=== PATIENT | female | born 1950 | race Caucasian/White ===

== ENCOUNTER 2021-07-12 15:01 | Emergency (ER) | payer OTHER ==
--- NOTE | 2021-07-12 15:37 | ER ---
Nurse's Notes [facility] Name: Lucia Rowan Age: 71 yrs Sex: Female : 1950 Arrival Date: 07/12/2021 Time: 15:06 Bed Waiting Private MD: Diagnosis: Otalgia, left ear;Dental pain Presentation: 07/12 15:31 Chief complaint: Patient states: Left side mouth pain that happened suddenly today with vg1 left ear ringing. Coronavirus screen: Vaccine status: Patient reports receiving the 2nd dose of the covid vaccine. Client denies travel out of the [place] in the last 14 days. Ebola Screen: Patient denies exposure to infectious person. Patient denies travel to an Ebola-affected area in the 21 days before illness onset. Initial Sepsis Screen: Does the patient meet any 2 criteria? No. Patient's initial sepsis screen is negative. Does the patient have a suspected source of infection? No. Patient's initial sepsis screen is negative. Risk Assessment: Do you want to hurt yourself or someone else? Patient reports no desire to harm self or others. Onset of symptoms was July 12, 2021. 15:31 Method Of Arrival: Ambulatory vg1 15:31 Acuity: LAZARO 4 vg1 Triage Assessment: 15:35 General: Appears in no apparent distress. uncomfortable, Behavior is calm, cooperative. vg1 Pain: Complains of pain in mouth Pain currently is 6 out of 10 on a pain scale. EENT: Oral mucosa is moist. Historical: - Allergies: 15:35 Sulfa (Sulfonamide Antibiotics); vg1 - Home Meds: 15:35 alendronate 70 mg Oral tab 1 tab once wkly for Post-Menopausal Osteoporosis [Active]; vg1 - PMHx: 15:35 Osteoporosis; Vertigo; vg1 - Immunization history:: Client reports receiving the 2nd dose of the Covid vaccine. - Social history:: Smoking status: Patient denies any tobacco usage or history of. Screenin:48 Abuse screen: Denies threats or abuse. Nutritional screening: No deficits noted. vg1 Tuberculosis screening: No symptoms or risk factors identified. Fall Risk None identified. Vital Signs: 15:31 BP 143 / 87; Pulse 65; Resp 16; Temp 97.7; Pulse Ox 97% ; Weight 70.31 kg; Height 5 ft. vg1 3 in. (160.02 cm); Pain 6/10; 15:31 Body Mass Index 27.46 (70.31 kg, 160.02 cm) vg1 ED Course: 15:06 Patient arrived in ED. mr 15:08 Rip Lama, BRENT is PHCP. pm1 15:08 Dyllan Suarez MD is Attending Physician. pm1 15:35 Triage completed. vg1 15:35 Arm band placed on. vg1 15:48 Patient has correct armband on for positive identification. vg1 15:48 No provider procedures requiring assistance completed. Patient did not have IV access vg1 during this emergency room visit. Administered Medications: 15:49 Not Given (Patient Refused): [place] (HYDROcodone-acetaminophen) 10 mg-325 mg 1 tabs PO vg1 once; RASS on ADMIN: Combtv4, Very Agttd3, Agttd2, Rstlss1, AlertClm0, Drwsy-1, Lt Sdtn-2, Mod Sdtn-3, Dp Sdtn-4, UnArsble-5 Outcome: 15:36 Discharge ordered by . pm1 15:48 Discharged to home ambulatory. vg1 15:48 Condition: good 15:48 Discharge instructions given to patient, Instructed on discharge instructions, follow up and referral plans. medication usage, Demonstrated understanding of instructions, follow-up care, medications, Prescriptions given X 2. 15:49 Patient left the ED. vg1 Signatures: Irma Flannery mr KelbyRip, HAND CANDY MOLDER HAND CANDY MOLDER pm1 Yenifer Murphy, RN RN vg1
--- NOTE | 2021-07-12 15:37 | EDPHYS ---
Physician Documentation [facility] Name: Lucia Rowan Age: 71 yrs Sex: Female : 1950 Arrival Date: 07/12/2021 Time: 15:06 Bed Waiting Private MD: ED Physician Dyllan Suarez HPI: 07/12 15:35 This 71 yrs old Female presents to ER via Ambulatory with complaints of Ear Pain, Mouth pm1 Swelling. 15:35 The patient presents with pain. The complaints affect the left ear. Onset: The pm1 symptoms/episode began/occurred today. Modifying factors: The symptoms are alleviated by nothing, the symptoms are aggravated by lying on that side of her face. Associated signs and symptoms: Pertinent positives: right upper gum swelling, Pertinent negatives: fever, trismus. Severity of symptoms: in the emergency department the symptoms are unchanged. The patient has not experienced similar symptoms in the past. The patient has not recently seen a physician. Historical: - Allergies: 15:35 Sulfa (Sulfonamide Antibiotics); vg1 - Home Meds: 15:35 alendronate 70 mg Oral tab 1 tab once wkly for Post-Menopausal Osteoporosis [Active]; vg1 - PMHx: 15:35 Osteoporosis; Vertigo; vg1 - Immunization history:: Client reports receiving the 2nd dose of the Covid vaccine. - Social history:: Smoking status: Patient denies any tobacco usage or history of. ROS: 15:35 Constitutional: Negative for fever, chills, and weight loss. pm1 15:35 Cardiovascular: Negative for chest pain, palpitations, and edema, Respiratory: Negative for shortness of breath, cough, wheezing, and pleuritic chest pain, Abdomen/GI: Negative for abdominal pain, nausea, vomiting, diarrhea, and constipation, MS/Extremity: Negative for injury and deformity, Skin: Negative for injury, rash, and discoloration. 15:35 ENT: Positive for ear pain, gum swelling, Negative for difficulty swallowing, difficulty handling secretions, hoarseness. 15:35 Neck: Positive for swollen nodes. 15:35 All other systems are negative. Exam: 15:35 Constitutional: This is a well developed, well nourished patient who is awake, alert, pm1 and in no acute distress. Head/Face: Normocephalic, atraumatic. 15:35 Skin: Warm, dry with normal turgor. Normal color with no rashes, no lesions, and no evidence of cellulitis. MS/ Extremity: Pulses equal, no cyanosis. Neurovascular intact. Full, normal range of motion. 15:35 ENT: External ear(s): no acute changes, Ear canal(s): no acute changes, TM's: no acute changes, Examination of the other ear shows no obvious abnormality, Dental exam: abscess, is not appreciated, gum swelling, that is mild, specifically in the upper left second molar (#15), Voice: no acute changes, negative for trismus. 15:35 Neck: Lymph nodes: lymphadenopathy is appreciated, anterior cervical nodes. 15:35 Cardiovascular: Exam negative for acute changes, Rate: normal, Rhythm: regular, Pulses: no pulse deficits are appreciated. 15:35 Respiratory: Exam negative for acute changes, respiratory distress, shortness of breath. 15:35 Neuro: Exam negative for acute changes, Orientation: is normal, Mentation: is normal, Motor: is normal, moves all fours. Vital Signs: 15:31 BP 143 / 87; Pulse 65; Resp 16; Temp 97.7; Pulse Ox 97% ; Weight 70.31 kg; Height 5 ft. vg1 3 in. (160.02 cm); Pain 6/10; 15:31 Body Mass Index 27.46 (70.31 kg, 160.02 cm) vg1 MDM: 15:35 Data reviewed: vital signs. Data interpreted: Pulse oximetry: on room air is 97 %. pm1 Interpretation: normal. Counseling: I had a detailed discussion with the patient and/or guardian regarding: the historical points, exam findings, and any diagnostic results supporting the discharge/admit diagnosis, the need for outpatient follow up, a dentist, to return to the emergency department if symptoms worsen or persist or if there are any questions or concerns that arise at home. 15:36 Patient medically screened. pm1 Administered Medications: 15:49 Not Given (Patient Refused): [place] (HYDROcodone-acetaminophen) 10 mg-325 mg 1 tabs PO vg1 once; RASS on ADMIN: Combtv4, Very Agttd3, Agttd2, Rstlss1, AlertClm0, Drwsy-1, Lt Sdtn-2, Mod Sdtn-3, Dp Sdtn-4, UnArsble-5 Disposition: 18:49 Co-signature as Attending Physician, Dyllan Suarez MD. rn Disposition Summary: 07/12/21 15:36 Discharge Ordered Location: Home pm1 Problem: new pm1 Symptoms: have improved pm1 Condition: Stable pm1 Diagnosis - Otalgia, left ear pm1 - Dental pain pm1 Followup: pm1 - With: Emergency Department - When: As needed - Reason: Worsening of condition Followup: pm1 - With: Private Physician - When: 2 - 3 days - Reason: Recheck today's complaints, Continuance of care, Re-evaluation by your physician Discharge Instructions: - Discharge Summary Sheet pm1 - Dental Pain pm1 - Earache, Adult pm1 Forms: - Medication Reconciliation Form pm1 - Thank You Letter pm1 - Antibiotic Education pm1 - Prescription Opioid Use pm1 Prescriptions: - Amoxicillin 500 mg Oral Capsule - take 1 capsule by ORAL route every 8 hours for 10 days; 30 tablet; Refills: 0, pm1 Product Selection Permitted - Tylenol-Codeine #3 300 mg-30 mg Oral - take 2 tablet by ORAL route every 6 hours As needed; 20 tablet; Refills: 0, pm1 Product Selection Permitted Signatures: Dyllan Suarez MD MD rn Marinas, Patrick, NP [employer] MACHINE OPERATOR pm1 Yenifer Murphy, RN RN vg1
[2021-07-12 18:45] VITALS: BP 143/87; TEMP 97.7; O2SAT 97
== END 2021-07-12 15:49 | disposition home or self-care (01) ==
LOC: ER 15:01
DX: H92.02 Otalgia, left ear (principal); K08.89 Other specified disorders of teeth and supporting structures; Z88.2 Allergy status to sulfonamides
CPT/HCPCS: 99282

== ENCOUNTER 2023-07-21 09:29 | Emergency (ER) | payer OTHER ==
--- OUTSIDE RECORDS SUMMARY | 2023-07-21 09:33 | XMS REPORT | Continuity of Care Document ---
Author Name Unknown Address [address] [place] [address] [place] [address] thconnect Address [address] [place] [address] [address] [place] [address] Care Team Providers Care [employer] Treatment Plant Supervisor Name Role Phone Unavailable Unavailable Unavailable Encounters Start Date/Time End Date/Time Encounter Type Admission Type Attending Clinicians Care Facility Care Department Encounter ID Source 2022-05-20 09:08:18 Outpatient [facility] [id number] [facility]
[2023-07-21] MEDS ORDERED: ONDANSETRON 4 MG/2 ML VIAL ONE (10:25)
[2023-07-21] MEDS ORDERED: FENTANYL CITR 100 MCG/2 ML ONE (10:26)
[2023-07-21] MEDS ORDERED: KETOROLAC 30 MG/ML INJ ONE (10:26)
[2023-07-21] MEDS ORDERED: NA CHLORIDE 0.9% 1,000 ML ONE (10:26)
[2023-07-21] MEDS ORDERED: VALACYCLOVIR 500 MG TAB ONE (10:29)
[2023-07-21 10:32] LABS: Absolute Eosinophils 0.2 K/uL (0-0.5); Absolute Lymphocytes (CBC) 1.2 K/uL (0.7-4.9); Absolute Monocytes 0.6 K/uL (0.1-1.3); Absolute Neutrophil 4.1 K/uL (1.8-8.0); Basophils % 0.8 % (0-1.3); Eosinophils % 2.5 % (0-4.4); Hematocrit 38.6 % (36.0-45.0); Lymphocytes % 19.8 % (15.3-44.8); MCH 30.5 pg (27.0-35.0); MCHC 33.7 g/dL (32.0-36.0); MCV 90.4 fL (80-100); MPV 7.9 fL (7.6-11.3); Monocytes % 10.5 % (3.3-12.3); Neutrophils % 66.4 % (41.7-73.7); Nucleated Red Blood Cells % 0.1 % (0-0); Platelets 269 thou/uL (152-406); RBC Red Blood Cell Count 4.27 M/uL (3.86-4.86); Red Cell Distribution Width 13.6 % (12.1-15.2)
[2023-07-21 10:50] LABS: Albumin 3.4 g/dL (3.4-5.0); Albumin/Globulin Ratio 0.9 (1.1-1.8); Bilirubin Total 0.7 mg/dL (0.2-1.0); Globulin 3.6 g/dL (2.3-3.5)
--- NOTE | 2023-07-21 11:32 | RAD REPORT ---
EXAM DESCRIPTION: CT - Head Brain Wo Cont - 07/21/2023 10:31 am CLINICAL HISTORY: HEADACHE COMPARISON: Head Brain Wo Cont dated 10/07/2015 TECHNIQUE: Noncontrast head CT images were obtained without IV contrast. Multiplanar reformats were generated and reviewed. All CT scans are performed using dose optimization technique as appropriate and may include automated exposure control or mA/KV adjustment according to patient size. FINDINGS: No intracranial hemorrhage, mass, or edema. Midline structures are unremarkable. Normal ventricular caliber for age. Leigh-white matter differentiation is preserved, without evidence of acute infarct. No abnormal extra- axial fluid collections. Mastoid air cells and visualized portions of the paranasal sinuses are clear. No acute bony findings. IMPRESSION: No evidence of an acute intracranial process.
--- NOTE | 2023-07-21 11:33 | ER ---
Nurse's Notes [facility] Name: Lucia Rowan Age: 73 yrs Sex: Female : 1950 Arrival Date: 07/21/2023 Time: : Bed 6 Private MD: Diagnosis: Zoster without complications Presentation: 07/20 09:39 Coronavirus screen: At this time, the client does not indicate any symptoms associated bp with coronavirus-19. Ebola Screen: No symptoms or risks identified at this time. Initial Sepsis Screen: Does the patient meet any 2 criteria? No. Patient's initial sepsis screen is negative. Does the patient have a suspected source of infection? No. Patient's initial sepsis screen is negative. Risk Assessment: Do you want to hurt yourself or someone else? Patient reports no desire to harm self or others. 09:39 Method Of Arrival: Ambulatory bp 09:42 Chief complaint: Patient states: 2-3 DAYS HOLMAN AND BILATERAL EYE PAIN. Onset of symptoms bp is unknown. 09:42 Acuity: LAZARO 3 bp Triage Assessment: 09:38 Headache History: The patient has had previous headaches and this one is similar to bp previous episodes. General: Appears in no apparent distress. Behavior is calm, cooperative, appropriate for age. Pain: Complains of pain in head Pain currently is 5 out of 10 on a pain scale. Pain began suddenly, Also complains of no other associated symptoms. EENT: Reports pain. Neuro: Reports headache. Cardiovascular: No deficits noted. Respiratory: No deficits noted. GI: No signs and/or symptoms were reported involving the gastrointestinal system. : No signs and/or symptoms were reported regarding the genitourinary system. Derm: No deficits noted. Musculoskeletal: No deficits noted. Historical: - Allergies: 09:38 Sulfa (Sulfonamide Antibiotics); bp - Home Meds: 09:38 alendronate 70 mg Oral tab 1 tab once wkly for Post-Menopausal Osteoporosis [Active]; bp - PMHx: 09:38 Osteoporosis; Vertigo; bp - Immunization history:: Adult Immunizations up to date. - Infectious Disease History:: Denies. - Social history:: Smoking status: Patient denies any tobacco usage or history of. Screenin:40 [facility] ED Fall Risk Assessment (Adult) History of falling in the last 3 months, bp including since admission No falls in past 3 months (0 pts). Abuse screen: Denies threats or abuse. Denies injuries from another. Nutritional screening: No deficits noted. Tuberculosis screening: No symptoms or risk factors identified. Assessment: 09:40 General: SEE TRIAGE NOTE. bp 11:30 Reassessment: Patient appears in no apparent distress at this time. Patient is alert, bp oriented x 3, equal unlabored respirations, skin warm/dry/pink. Patient states symptoms have improved. Vital Signs: 09:42 BP 152 / 76; Pulse 73; Resp 16; Temp 98.3; Pulse Ox 98% ; Weight 68.04 kg; Height 5 ft. bp 3 in. ; 11:30 BP 146 / 89; Pulse 48; Resp 16; Pulse Ox 100% ; bp 09:42 Body Mass Index 26.57 (68.04 kg, 160.02 cm) bp Elroy Coma Score: 11:00 Eye Response: spontaneous(4). Motor Response: obeys commands(6). Verbal Response: rhys oriented(5). Total: 15. ED Course: 09:32 Patient arrived in ED. im 09:34 Vaibhav Tamayo MD is Attending Physician. rhys 09:38 Willi Andrews, RN is Primary Nurse. bp 09:39 Arm band placed on. bp 09:40 Patient has correct armband on for positive identification. bp 09:43 Triage completed. bp 10:22 Initial lab(s) drawn, by me, sent to lab. Inserted saline lock: 20 gauge in right mb9 antecubital area, using aseptic technique. Blood collected. 10:[address] via stretcher. mb9 10:31 CT Head Brain wo Cont In Process Unspecified. EDMS 11:33 Serge Gasca MD is Referral Physician. rhys 11:44 Provided Education on: N/A. bp 11:44 No provider procedures requiring assistance completed. IV discontinued, intact, bp bleeding controlled, No redness/swelling at site. Pressure dressing applied. Administered Medications: 10:39 Drug: NS 0.9% IV 1000 ml IV at 1 bolus Per protocol; 1000 mL bolus Route: IV; Rate: 1 bp bolus; Site: right antecubital; 11:44 Follow up: IV Status: Completed infusion; IV Intake: 1000ml bp 10:39 Drug: Ketorolac IVP 30 mg IVP once Route: IVP; Site: right antecubital; bp 11:45 Follow up: Response: No adverse reaction bp 10:39 Drug: Ondansetron IVP 4 mg IVP once; over 2 minutes Route: IVP; Site: right antecubital;bp 11:45 Follow up: Response: No adverse reaction bp 10:39 Drug: fentaNYL (PF) IVP 25 mcg IVP once Route: IVP; Site: right antecubital; bp 11:45 Follow up: Response: No adverse reaction bp 10:39 Drug: fentaNYL (PF) IVP 25 mcg IVP once Route: IVP; Site: right antecubital; bp 11:45 Follow up: Response: No adverse reaction bp 10:39 Drug: Valtrex PO 1000 mg PO once Route: PO; bp 11:45 Follow up: Response: No adverse reaction bp Medication: 09:40 VIS not applicable for this client. bp Intake: 11:44 IV: 1000ml; Total: 1000ml. bp Outcome: 11:33 Discharge ordered by . rhys 11:44 Discharged to home ambulatory, with family, bp 11:44 Condition: stable 11:44 Discharge instructions given to patient, Instructed on discharge instructions, follow up and referral plans. medication usage, Demonstrated understanding of instructions, follow-up care, medications, Prescriptions given X 2, 11:53 Patient left the ED. bp Signatures: Dispatcher [employer] Vaibhav Walker MD MD cha Peltier, Brian, RN RN Irma See RN RN mb9 Caterina Teague
--- NOTE | 2023-07-21 11:34 | EDPHYS ---
Physician Documentation [facility] Name: Lucia Rowan Age: 73 yrs Sex: Female : 1950 Arrival Date: 07/21/2023 Time: : Bed 6 Private MD: ED Physician Vaibhav Tamayo HPI: 07/20 10:49 This 73 yrs old Female presents to ER via Ambulatory with complaints of rhys Headache, Eye Pain. 10:49 The patient complains of pain to the top of head, forehead, left eye and left frontal rhys area. The patient describes the headache as aching. Onset: The symptoms/episode began/occurred 3 day(s) ago. Associated signs and symptoms: The patient has no apparent associated signs or symptoms. Severity of symptoms: At its worst the pain was moderate, in the emergency department the pain is unchanged. Headache History:. The symptoms are alleviated by nothing. the symptoms are aggravated by nothing. The patient has not experienced similar symptoms in the past. Historical: - Allergies: 09:38 Sulfa (Sulfonamide Antibiotics); bp - Home Meds: 09:38 alendronate 70 mg Oral tab 1 tab once wkly for Post-Menopausal Osteoporosis [Active]; bp - PMHx: 09:38 Osteoporosis; Vertigo; bp - Immunization history:: Adult Immunizations up to date. - Infectious Disease History:: Denies. - Social history:: Smoking status: Patient denies any tobacco usage or history of. ROS: 10:58 Constitutional: Negative for fever, chills, and weight loss, Eyes: Negative for injury, rhys pain, redness, and discharge, Neck: Negative for injury, pain, and swelling, Cardiovascular: Negative for chest pain, palpitations, and edema, Respiratory: Negative for shortness of breath, cough, wheezing, and pleuritic chest pain, Abdomen/GI: Negative for abdominal pain, nausea, vomiting, diarrhea, and constipation, Back: Negative for injury and pain, : Negative for injury, bleeding, discharge, and swelling, MS/Extremity: Negative for injury and deformity, Psych: Negative for depression, anxiety, suicide ideation, homicidal ideation, and hallucinations, Allergy/Immunology: Negative for hives, rash, and allergies, Endocrine: Negative for neck swelling, polydipsia, polyuria, polyphagia, and marked weight changes, Hematologic/Lymphatic: Negative for swollen nodes, abnormal bleeding, and unusual bruising, 10:58 ENT: Negative for injury or acute deformity, 10:58 Skin: Positive for rash, of the left frontal area and left eye and top of head, 10:58 Neuro: Positive for headache, Exam: 10:58 Constitutional: This is a well developed, well nourished patient who is awake, alert, rhys and in no acute distress. Eyes: Pupils equal round and reactive to light, extra-ocular motions intact. Lids and lashes normal. Conjunctiva and sclera are non-icteric and not injected. Cornea within normal limits. Periorbital areas with no swelling, redness, or edema. ENT: Nares patent. No nasal discharge, no septal abnormalities noted. Tympanic membranes are normal and external auditory canals are clear. Oropharynx with no redness, swelling, or masses, exudates, or evidence of obstruction, uvula midline. Mucous membranes moist. Neck: Trachea midline, no thyromegaly or masses palpated, and no cervical lymphadenopathy. Supple, full range of motion without nuchal rigidity, or vertebral point tenderness. No Meningismus. Chest/axilla: Normal chest wall appearance and motion. Nontender with no deformity. No lesions are appreciated. Cardiovascular: Regular rate and rhythm with a normal S1 and S2. No gallops, murmurs, or rubs. Normal PMI, no JVD. No pulse deficits. Respiratory: Lungs have equal breath sounds bilaterally, clear to auscultation and percussion. No rales, rhonchi or wheezes noted. No increased work of breathing, no retractions or nasal flaring. Abdomen/GI: Soft, non-tender, with normal bowel sounds. No distension or tympany. No guarding or rebound. No evidence of tenderness throughout. Back: No spinal tenderness. No costovertebral tenderness. Full range of motion. MS/ Extremity: Pulses equal, no cyanosis. Neurovascular intact. Full, normal range of motion. Neuro: Awake and alert, GCS 15, oriented to person, place, time, and situation. Cranial nerves II-XII grossly intact. Motor strength 5/5 in all extremities. Sensory grossly intact. Cerebellar exam normal. Normal gait. Psych: Awake, alert, with orientation to person, place and time. Behavior, mood, and affect are within normal limits. 10:58 Head/face: Noted is rash, consistent with zoster Vital Signs: 09:42 BP 152 / 76; Pulse 73; Resp 16; Temp 98.3; Pulse Ox 98% ; Weight 68.04 kg; Height 5 ft. bp 3 in. ; 11:30 BP 146 / 89; Pulse 48; Resp 16; Pulse Ox 100% ; bp 09:42 Body Mass Index 26.57 (68.04 kg, 160.02 cm) bp Elroy Coma Score: 11:00 Eye Response: spontaneous(4). Motor Response: obeys commands(6). Verbal Response: rhys oriented(5). Total: 15. MDM: 09:34 Patient medically screened. rhys 11:00 Differential diagnosis: allergic reaction, herpes zoster, migraine, temporal arteritis, rhys tension headache, trigeminal neuralgia. Data reviewed: vital signs, nurses notes, lab test result(s), radiologic studies, CT scan. Consideration of Admission/Observation Escalation of care including admission/observation considered. I considered the following discharge prescriptions or medication management in the emergency department Medications were administered in the Emergency Department. See MAR. Test considered but Not performed: Ultrasound no mri brain. Care significantly affected by the following chronic conditions: osteoporosis, vertigo. 07/20 10:21 Order name: CBC with Diff; Complete Time: 11:32 [facility] 07/20 10:21 Order name: Comprehensive Metabolic Panel; Complete Time: 11:32 [facility] 07/20 10:21 Order name: CT Head Brain wo Cont; Complete Time: 11:32 [facility] Administered Medications: 10:39 Drug: NS 0.9% IV 1000 ml IV at 1 bolus Per protocol; 1000 mL bolus Route: IV; Rate: 1 bp bolus; Site: right antecubital; 11:44 Follow up: IV Status: Completed infusion; IV Intake: 1000ml bp 10:39 Drug: Ketorolac IVP 30 mg IVP once Route: IVP; Site: right antecubital; bp 11:45 Follow up: Response: No adverse reaction bp 10:39 Drug: Ondansetron IVP 4 mg IVP once; over 2 minutes Route: IVP; Site: right antecubital;bp 11:45 Follow up: Response: No adverse reaction bp 10:39 Drug: fentaNYL (PF) IVP 25 mcg IVP once Route: IVP; Site: right antecubital; bp 11:45 Follow up: Response: No adverse reaction bp 10:39 Drug: fentaNYL (PF) IVP 25 mcg IVP once Route: IVP; Site: right antecubital; bp 11:45 Follow up: Response: No adverse reaction bp 10:39 Drug: Valtrex PO 1000 mg PO once Route: PO; bp 11:45 Follow up: Response: No adverse reaction bp Disposition Summary: 07/21/23 11:33 Discharge Ordered Notes: Location: Home rhys Problem: new rhys Symptoms: have improved rhys Condition: Stable rhys Diagnosis - Zoster without complications rhys Followup: rhys - With: Private Physician - When: 2 - 3 days - Reason: Recheck today's complaints, Continuance of care, Re-evaluation by your physician Followup: rhys - With: Serge Gasca MD - When: 2 - 3 days - Reason: Recheck today's complaints, Re-evaluation by your physician Discharge Instructions: - Discharge Summary Sheet rhys - Neuropathic Pain rhys - Shingles rhys - Shingles, [id number] [facility] Forms: - Medication Reconciliation Form rhys - Antibiotic Education rhys - Prescription Opioid Use rhys - Patient Portal Instructions [facility] - Leadership Thank You Letter [facility] Prescriptions: - Valtrex 1 gram Oral tablet - take 1 tablet ORAL route every 8 hours for 7 days; 21 tablet; Refills: 0, rhys Product Selection Permitted - gabapentin 300 mg Oral capsule - take 1 capsule ORAL route 2 times per day; 40 capsule; Refills: 0, Product [facility] Selection Permitted - Ibuprofen 600 mg Oral tablet - take 1 tablet ORAL route every 8 hours As needed take with food; 21 tablet; rhys Refills: 0, Product Selection Permitted Signatures: Dispatcher [employer] Vaibhav Walker MD MD cha Peltier, Brian, RN RN bp Corrections: (The following items were deleted from the chart) 10:21 10:21 Head Brain Wo [id number].RAD.[id number] ordered. MARTELL MOURA
[2023-07-21 12:23] VITALS: BP 146/89; TEMP 98.3; O2SAT 100
== END 2023-07-21 11:53 | disposition home or self-care (01) ==
LOC: ER 09:29
DX: B02.9 Zoster without complications (principal); R51.9 Headache, unspecified; Z88.2 Allergy status to sulfonamides
CPT/HCPCS: 96361; 85025; 36415; 80053; 70450; 96375; 96374; 99285; J3010; J2405; J7030